=== PATIENT | male | born 1985 | race Hispanic/Latino ===

== ENCOUNTER 2024-09-20 01:43 | Emergency (ER) | payer SELFPAY ==
[2024-09-20] MEDS ORDERED: Boostrix 0.5 ML (Tdap) VIAL (>/=7 yrs of age) ONE (03:18)
[2024-09-20] MEDS ORDERED: Bacitracin 1 PK ONE (03:18)
== END 2024-09-20 03:44 | disposition home or self-care (01) ==
LOC: MADERS 01:43
DX: S61.242A Puncture wound with foreign body of right middle finger without damage to nail, initial encounter (principal); W34.00XA Accidental discharge from unspecified firearms or gun, initial encounter; Z23 Encounter for immunization
CPT/HCPCS: 12001; 90471; 90715